=== PATIENT | female | born 1935 | race Caucasian/White ===

== ENCOUNTER 2020-09-03 06:22 | Outpatient (CLI) | payer OTHER ==
[~2020-09-03 06:22] MED LIST: ASA81 MG PO; AVALIDE 150-12.1 TA1 PO
== END 2020-09-03 06:26 | disposition home or self-care (01) ==
LOC: TOM 06:22
PROVIDERS: ATTEND Internal Medicine Gastroenterology
DX: K56.600 Partial intestinal obstruction, unspecified as to cause (principal); K56.50 Intestinal adhesions [bands], unspecified as to partial versus complete obstruction

== ENCOUNTER 2020-11-27 09:13 | Emergency (ER) | payer OTHER ==
[~2020-11-27] VITALS: Ht 157.5 cm; Wt 64.9 kg
[2020-11-27] MEDS ORDERED: MEDROLPACK PO (12:29)
[2020-11-27] MEDS ORDERED: TESSALON PERLE100 M1 PO (12:29)
== END 2020-11-27 12:58 | disposition home or self-care (01) ==
LOC: ER 09:13
DX: J06.9 Acute upper respiratory infection, unspecified (principal); Z03.818 Encounter for observation for suspected exposure to other biological agents ruled out; R09.81 Nasal congestion; R05 Cough; R53.81 Other malaise

== ENCOUNTER 2021-01-28 07:12 | Outpatient (CLI) | payer OTHER ==
[~2021-01-28 07:12] MED LIST changes: +MEDROLPACK PO; +TESSALON PERLE100 M1 PO
== END 2021-01-28 07:25 | disposition home or self-care (01) ==
LOC: TOM 07:12 → MAMO-SONO 07:15 → TOM 07:25
PROVIDERS: ATTEND Internal Medicine Gastroenterology
DX: Q61.01 Congenital single renal cyst (principal); R93.3 Abnormal findings on diagnostic imaging of other parts of digestive tract; R10.13 Epigastric pain

== ENCOUNTER 2025-01-12 11:53 | Emergency (ER) | payer OTHER ==
[~2025-01-12] VITALS: Ht 157.5 cm; Wt 59.0 kg
[2025-01-12] MEDS ORDERED: ONDANSETRON HCL 2 MG/ML VIAL IV STA (12:30)
[2025-01-12] MEDS ORDERED: FAMOTIDINE/PF 20 MG/2 ML VIAL IV PUSH STA (12:30)
[2025-01-12] MEDS ORDERED: ONDANSETRON HCL 2 MG/ML VIAL ONE (12:48)
[2025-01-12] MEDS ORDERED: FAMOTIDINE/PF 20 MG/2 ML VIAL ONE (12:48)
[2025-01-12 13:35] LABS: BASO % 0.8 % (0.1-1.2); EOS # 0.15 (0.04-0.54); EOS % 2.9 % (0.7-7.0); LYMPH # 1.10 (1.18-3.74); LYMPH % 21.3 % (19.3-53.1); MEAN PLATELET VOLUME 10.00 fl (9.4-12.4); MONO # 0.58 (0.24-0.82); MONO % 11.2 % (4.7-12.5); NEUT # 3.27 (1.56-6.13); NEUT % 63.4 % (34.0-71.1); RED CELL DISTRIBUTION WIDTH 12.4 % (11.6-14.4)
[2025-01-12 13:41] LABS: ALT/SGPT 22.0 U/L (12-78); AST/SGOT 21.0 U/L (15-37); BILIRUBIN TOTAL 0.96 mg/dL (0.3-1.2); BUN CREA RATIO 23.0 (7.0-25.0); CREATININE SERUM 0.83 mg/dL (0.55-1.02); GFR 64.88; GLOBULINA 3.1 G/DL (2.4-3.5); GLUCOSE FASTING 114.0 mg/dL (65-100); OSMOLALITY SERUM 288.0 MOSM/KG (275-295)
== END 2025-01-12 14:53 | disposition home or self-care (01) ==
LOC: ER 11:54
PROVIDERS: General Practice
DX: R11.10 Vomiting, unspecified (principal); Z88.8 Allergy status to other drugs, medicaments and biological substances
CPT/HCPCS: 36415; 96365; 99282; J2405; J3490